=== PATIENT | male | born 1990 | race African-American/Black ===

== ENCOUNTER 2024-08-12 12:21 | Emergency (ER) | payer OTHER, SELFPAY ==
[2024-08-12 12:27] VITALS: BP 146/105
--- NOTE | 2024-08-12 12:31 | ED.GENMED ---
ED Provider Triage
-
Patient seen by provider in Triage?: Seen in Triage
Attestation: A medical screening examination has been initiated by a qualified medical provider. Based on the assessment performed at this time, it has been determined that an emergent medical condition may exist and the patient has been informed
that further medical evaluation and possible additional diagnostic testing may be needed.
HPI: 34 yr old male presents to the ED with left sided starting at 12 am. Worse when he takes a deep breath. Pt works at [employer] and was holding a child down 2 d ago . Two days ago area felt sore but worsened last night. Pt has taken
Tylenol with some relief. 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 non smoker. no cardiac history
GENERAL: Alert , in no apparent distress
EYE: No visual abnormalities.
NECK: Trachea midline
ENT: No visible abnormalities.
LUNGS: No acute respiratory distress; tender to left anterior chest wall
NEUROLOGICAL: Alert and oriented
SKIN: Skin intact. No visible changes.
MUSCULOSKELETAL: Moving extremities normally
PSYCH: Normal and appropriate interaction.
This is a medical evaluation conducted in person to initiate diagnostic evaluation and provide initial therapeutics. Please see further documentation by the treating clinician.
History of Present Illness
General
Chief Complaint: Chest Pain
Course
Orders/Labs/Results
Orders:
Orders
08/12/24 12:23
Electrocardiogram (*1) Urgent
Reason for Study: Chest Pain
EKG- Treatment ONCE
08/12/24 12:30
Complete Blood Count/With Diff Urgent
Comprehensive Metabolic Panel Urgent
Lipase Urgent
Troponin I Urgent
Vital Signs
Initial and Last Documented VS:
Initial Vital Signs
Temp Pulse Resp BP Pulse Ox
98.2 F 64 18 146/105 99
08/12/24 12:27 08/12/24 12:27 08/12/24 12:27 08/12/24 12:27 08/12/24 12:27
Last Documented Vital Signs
Temp Pulse Resp BP Pulse Ox
98.2 F 64 18 146/105 99
08/12/24 12:27 08/12/24 12:27 08/12/24 12:27 08/12/24 12:27 08/12/24 12:27
ED Attending Note
-
Portions of this chart may have been created with voice recognition software.� Occasional wrong word or��sound alike� substitutions may have occurred due to the inherent limitations of voice recognition software.
Discharge Plan
Interventions
Interventions:
*Risk Screen - Suicide Last Done: 08/12/24 12:27
*General Assessment Last Done: 08/12/24 12:27
*Neglect/Abuse Screening Last Done: 08/12/24 12:27
*ED COVID-19 Vaccine History Last Done: 08/12/24 12:27
Discharge Date and Time
Print Language: ICELANDIC
[2024-08-12 12:46] LABS: % Basophils 0.4 % (0-2); % Eosinophils 0.9 % (0-6); % Immature Granulocytes 0.2 % (0-0.5); % Lymphocytes 48.8 % (20.5-51.1); % Monocytes 7.1 % (1.7-9.3); % Neutrophils 42.6 % (42.2-75.2); Absolute Eosinophils 0.1 10^3/uL (0-0.7); Absolute Lymphocytes 2.8 10^3/uL (1.2-3.4); Absolute Monocytes 0.4 10^3/uL (0.1-0.6); Absolute Neutrophils 2.4 10^3/uL (1.4-6.5); Hematocrit 38.1 % (39.0-52.0); Hemoglobin 11.8 g/dL (13.0-18.0); Mean Corpuscular Hgb 21.5 pg (27.0-31.0); Mean Corpuscular Volume 69.5 fL (80.0-94.0); Mean Platelet Volume 8.9 fL (7.4-10.4); Nucleated Red Blood Cells % 0 % (-); Platelet Count 406 10^3/uL (130-400); Red Blood Cell Count 5.48 10^6/uL (4.70-6.10); Red Cell Dist. Width 16.1 % (11.5-14.5); White Blood Cell Count 5.7 10^3/uL (4.8-10.8)
[2024-08-12 12:57] LABS: ALT (SGPT) 30 U/L (0-50); AST (SGOT) 25 U/L (17-59); Albumin 4.1 g/dl (3.5-5.0); Alkaline Phosphatase 52 U/L (38-126); Blood Urea Nitrogen 12 mg/dl (9-20); Calcium 9.2 mg/dl (8.4-10.2); Carbon Dioxide 27 mmol/L (22-30); Chloride 105 mmol/L (98-107); Glucose 103 mg/dl (70-99); Lipase 77 U/L (23-300); Potassium 4.2 mmol/L (3.5-5.1); Sodium 141 mmol/L (135-145); Total Bilirubin 0.7 mg/dl (0.2-1.3); Total Protein 7.2 g/dl (6.3-8.2); eGFR > 60.00
[2024-08-12 13:08] LABS: Troponin I < 0.012 ng/ml
[2024-08-12] MEDS: TORADOL 30 MG IV (14:38)
[2024-08-12 14:42] VITALS: BP 127/83
[2024-08-12 15:05] LABS: D-Dimer < 0.27 ug/mlFEU (0.00-0.50)
== END 2024-08-12 15:16 | disposition home or self-care (01) ==
LOC: EMR 12:21
PROVIDERS: Emergency Medicine; Physician Assistant; EMERGENCY PHYSICIAN Emergency Medicine; FAMILY PHYSICIAN Family Medicine
DX: R07.89 Other chest pain (principal)
CPT/HCPCS: 99283; 96374; 71046; 80053; 83690; 84484; 85025; 85379; 93005